=== PATIENT | female | born 1955 | race Caucasian/White ===

== ENCOUNTER 2018-09-29 10:22 | Emergency (ER) | payer OTHER ==
[~2018-09-29] VITALS: Ht 162.6 cm; Wt 63.5 kg
--- NOTE | 2018-09-29 11:04 | NUR ---
Dr Lopez at the bedside for MSE.
--- NOTE | 2018-09-29 11:18 | NUR ---
Both ears irrigation done per Dr John griffiths, Pt tolorated well.
--- NOTE | 2018-09-29 12:18 | NUR ---
Patient discharged to home in stable conditon. Written and verbal after care instructions given. Patient verbalizes understanding of instructions.
[2018-09-29 12:19] VITALS: BP 144/72
== END 2018-09-29 12:20 | disposition home or self-care (01) ==
LOC: ER 10:22
DX: H61.23 Impacted cerumen, bilateral (principal); K21.9 Gastro-esophageal reflux disease without esophagitis
CPT/HCPCS: A4663

== ENCOUNTER 2021-04-12 15:11 | Emergency (ER) | payer SELFPAY | END 2021-04-12 15:22 | disposition left against medical advice (07) | LOC: ER 15:11 | DX: Z53.21 Procedure and treatment not carried out due to patient leaving prior to being seen by health care provider (principal) ==

== ENCOUNTER 2021-04-13 08:59 | Emergency (ER) | payer OTHER ==
[~2021-04-13] VITALS: Ht 162.6 cm; Wt 49.9 kg
--- NOTE | 2021-04-13 09:05 | NUR ---
Dr Romero at the bedside for MSE.
[2021-04-13] MEDS ORDERED: DOCUSATE SODIUM 100 MG CAPSULE PO ONE ×2 (09:15→09:17)
[2021-04-13] MEDS ORDERED: DOCUSATE SODIUM 100 MG/10 ML LIQUID UDC NG ONE (09:30)
[2021-04-13] MEDS ORDERED: DOCUSATE SODIUM 100 MG/10 ML LIQUID UDC ONE (09:36)
--- NOTE | 2021-04-13 09:45 | NUR ---
Lt ear irrigated per ER MD order. Pt tolorated well and stated that can hear better.
--- NOTE | 2021-04-13 09:59 | NUR ---
Patient discharged to home in stable condition. Written and verbal after care instructions given. Patient verbalizes understanding of instructions. Stressed follow up or return to ER for worsening s/s.
[2021-04-13 10:00] VITALS: BP 143/77
[2021-04-14] MEDS ORDERED: NEOM10DR11 OT (10:27)
== END 2021-04-13 10:01 | disposition home or self-care (01) ==
LOC: ER 08:59
DX: H61.22 Impacted cerumen, left ear (principal); K21.9 Gastro-esophageal reflux disease without esophagitis
CPT/HCPCS: A4663

== ENCOUNTER 2021-04-14 08:59 | Emergency (ER) | payer OTHER ==
[~2021-04-14] VITALS: Ht 162.6 cm; Wt 49.9 kg
[2021-04-14] MEDS ORDERED: DOCUSATE SODIUM 100 MG/10 ML LIQUID UDC OT STA (09:20)
[2021-04-14] MEDS ORDERED: CARBAMIDE PEROXIDE OTIC DROP 15 ML BOTTLE OT ONE (09:30)
[2021-04-14] MEDS ORDERED: NEOM10DR11 OT (10:27)
--- NOTE | 2021-04-14 10:31 | NUR ---
Gave pt RX and d/c instructions, pt verbalized understanding.
== END 2021-04-14 10:48 | disposition home or self-care (01) ==
LOC: ER 08:59
DX: H61.22 Impacted cerumen, left ear (principal)
CPT/HCPCS: A4217; A4663